=== PATIENT | male | born 1945 | race Caucasian/White ===

== ENCOUNTER 2020-03-07 15:52 | Emergency (ER) | payer MEDICARE, OTHER ==
[2020-03-07] MEDS ORDERED: Sodium Chloride 0.9% 10 ML Syringe FLUSH PRN (16:20)
[2020-03-07] MEDS ORDERED: Sodium Chloride 0.9% 1,000 ML IV SCH (16:30)
[2020-03-07 17:03] VITALS: BP 143/62; PULSE 64
[2020-03-07] MEDS ORDERED: Iopamidol 755 Mg/ML 100 ML Bottle IV ONE (17:13)
--- NOTE | 2020-03-07 18:39 | EDM.PDOC ---
ED HPI GENERAL MEDICAL PROBLEM - General Chief Complaint: Abdominal Pain Stated Complaint: ABD PAIN Time Seen by Provider: 03/07/20 16:00 Source of Information: Reports: Patient History Limitations: Reports: No Limitations - History of Present Illness INITIAL COMMENTS - FREE TEXT/NARRATIVE: Patient presented to the ED via EMS because of abdominal pain,diffuse,sharp,10/ 10 with associated nausea but no vomiting. He was given dilaudid and zofran IV en route to the Ed and his pain is down to 4/10. He has a history of metastatic colon CA to the liver but is not taking any pain medications. There is no changes in bowel movements, urinary symptoms,fever or chills. Abdomen Pain Score (Numeric/FACES): 2 - Related Data Allergies Allergy/AdvReac Type Severity Reaction Status Date / Time hydrochlorothiazide Allergy Muscle Verified 03/07/20 17:58 [From Maxzide] Aches lisinopril Allergy Cough Verified 03/07/20 17:58 triamterene [From Maxzide] Allergy Muscle Verified 03/07/20 17:58 Aches Home Meds: Home Meds Aspirin [Ecotrin] 81 mg PO DAILY 04/23/15 [History] Baclofen 10 mg PO TID PRN 04/23/15 [History] Clopidogrel [Plavix] 75 mg PO BID 04/23/15 [History] Losartan [Cozaar] 50 mg PO BID 04/23/15 [History] Metoprolol Tartrate 25 mg PO BID 04/23/15 [History] Nitroglycerin [Nitrostat] 0.4 mg SL ASDIRECTED PRN 04/23/15 [History] Terazosin [Hytrin] 10 mg PO BEDTIME 04/23/15 [History] Acetaminophen/oxyCODONE [Percocet 325-5 MG] 1 each PO Q4H PRN #20 tab 03/07/20 [ Rx] Finasteride [Proscar] 5 mg PO DAILY 03/07/20 [History] Octreotide [SandoSTATIN LAR] 30 mg INJECT Q30D 03/07/20 [History] Ondansetron [Zofran ODT] 4 mg PO Q4H PRN #7 tab.dis 03/07/20 [Rx] Past Medical History HEENT History: Reports: Impaired Vision Cardiovascular History: Reports: Hypertension, [place], Stents, Other (See Below) Other Cardiovascular History: 4 stents total. 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 - Past Surgical History HEENT Surgical History: Reports: None Cardiovascular Surgical History: Reports: None GI Surgical History: Reports: Colonoscopy Other GI Surgeries/Procedures: colon cancer Other Oncologic Surgeries/Procedures: colectomy for colon CA Social & Family History - Tobacco Use Smoking Status *Q: Former Smoker Years of Tobacco use: 20 Used Tobacco, but Quit: Yes Month/Year Tobacco Last Used: 1994 - Caffeine Use Caffeine Use: Reports: Coffee - Recreational Drug Use Recreational Drug Use: No ED ROS GENERAL - Review of Systems Review Of Systems: See Below Constitutional: Reports: No Symptoms HEENT: Reports: No Symptoms Respiratory: Reports: No Symptoms Cardiovascular: Reports: No Symptoms Endocrine: Reports: No Symptoms GI/Abdominal: Reports: Abdominal Pain, Nausea : Reports: Hematuria Musculoskeletal: Reports: No Symptoms Skin: Reports: No Symptoms Neurological: Reports: No Symptoms ED EXAM, GI/ABD - Physical Exam Exam: See Below Exam Limited By: No Limitations General Appearance: Alert, No Apparent Distress Throat/Mouth: Normal Inspection, Normal Lips, Normal Teeth Head: Atraumatic, Normocephalic Neck: Normal Inspection, Supple, Non-Tender Respiratory/Chest: No Respiratory Distress, Lungs Clear, Normal Breath Sounds Cardiovascular: Normal Peripheral Pulses, Regular Rate, Rhythm, No Edema GI/Abdominal Exam: Normal Bowel Sounds, Soft, Non-Tender, No Organomegaly, Other (diffusely tender more on the epigastrium and RUQ) Back Exam: Normal Inspection, Decreased Range of Motion Extremities: Normal Inspection, Normal Range of Motion Course - Vital Signs Text/Narrative:: Labs/CT abd/pelvis was discussed with patient and verbalized full understanding NS 1 L bolus Last Recorded V/S: Last Vital Signs Temp 36.6 C 03/07/20 15:57 Pulse 64 03/07/20 15:57 Resp 18 03/07/20 15:57 BP 143/62 H 03/07/20 15:57 Pulse Ox 97 03/07/20 15:57 - Orders/Labs/Meds Labs: Laboratory Tests 03/07/20 03/07/20 03/07/20 Range/Units 16:20 16:27 16:27 WBC 5.6 (4.5-12.0) X10-3/uL RBC 4.49 (4.30-5.75) x10(6)uL Hgb 14.0 (13.5-17.8) g/dL Hct 42.0 (30.0-51.3) % MCV 93.4 (80-96) fL MCH 31.3 (27.7-33.6) pg MCHC 33.5 (32.2-35.4) g/dL RDW 13.4 (11.5-15.5) % Plt Count 171 (125-369) X10(3)uL MPV 7.4 (7.4-10.4) fL Neut % (Auto) 81.6 (46-82) % Lymph % (Auto) 10.5 L (13-37) % [place] % (Auto) 6.9 (4-12) % Eos % (Auto) 0 L (1.0-5.0) % Baso % (Auto) 1 (0-2) % Neut # (Auto) 4.6 (1.6-8.3) # Lymph # (Auto) 0.6 (0.6-5.0) # [place] # (Auto) 0.4 (0.0-1.3) # Eos # (Auto) 0.0 (0.0-0.8) # Baso # (Auto) 0.0 (0.0-0.2) # Sodium 143 (135-145) mmol/L Potassium 4.1 (3.5-5.3) mmol/L Chloride 107 (100-110) mmol/L Carbon Dioxide 25 (21-32) mmol/L BUN 16 (7-18) mg/dL Creatinine 1.1 (0.70-1.30) mg/dL Est Cr Clr Drug Dosing TNP Estimated GFR (MDRD) > 60 (>60) BUN/Creatinine Ratio 14.5 (9-20) Glucose 132 H (80-116) mg/dL Calcium 8.5 L (8.6-10.2) mg/dL Total Bilirubin 0.9 (0.1-1.3) mg/dL AST 62 H (5-25) IU/L ALT 93 H (12-36) U/L Alkaline Phosphatase 62 (56-112) IU/L Total Protein 7.1 (6.0-8.0) g/dL Albumin 3.7 (3.2-4.6) g/dL Globulin 3.4 g/dL Albumin/Globulin Ratio 1.1 Amylase 42 (25-115) U/L Lipase (73-393) U/L Urine Color Yellow (YELLOW) Urine Appearance Clear (CLEAR) Urine pH 5.0 (5.0-6.5) Ur Specific [place] 1.015 (1.010-1.025) Urine Protein Trace (NEGATIVE) mg/dL Urine Glucose (UA) Normal (NORMAL) mg/dL Urine Ketones Negative (NEGATIVE) mg/dL Urine Occult Blood Negative (NEGATIVE) Urine Nitrite Negative (NEGATIVE) Urine Bilirubin Negative (NEGATIVE) Urine Urobilinogen Normal (NEGATIVE) mg/dL Ur Leukocyte Esterase Negative (NEGATIVE) Urine RBC 0-5 (0-5) Urine WBC 0-5 (0-5) Ur Squamous Epith Cells Few H (NS,R,O) Urine Bacteria Few H (NS) 03/07/20 Range/Units 16:27 WBC (4.5-12.0) X10-3/uL RBC (4.30-5.75) x10(6)uL Hgb (13.5-17.8) g/dL Hct (30.0-51.3) % MCV (80-96) fL MCH (27.7-33.6) pg MCHC (32.2-35.4) g/dL RDW (11.5-15.5) % Plt Count (125-369) X10(3)uL MPV (7.4-10.4) fL Neut % (Auto) (46-82) % Lymph % (Auto) (13-37) % [place] % (Auto) (4-12) % Eos % (Auto) (1.0-5.0) % Baso % (Auto) (0-2) % Neut # (Auto) (1.6-8.3) # Lymph # (Auto) (0.6-5.0) # [place] # (Auto) (0.0-1.3) # Eos # (Auto) (0.0-0.8) # Baso # (Auto) (0.0-0.2) # Sodium (135-145) mmol/L Potassium (3.5-5.3) mmol/L Chloride (100-110) mmol/L Carbon Dioxide (21-32) mmol/L BUN (7-18) mg/dL Creatinine (0.70-1.30) mg/dL Est Cr Clr Drug Dosing Estimated GFR (MDRD) (>60) BUN/Creatinine Ratio (9-20) Glucose (80-116) mg/dL Calcium (8.6-10.2) mg/dL Total Bilirubin (0.1-1.3) mg/dL AST (5-25) IU/L ALT (12-36) U/L Alkaline Phosphatase (56-112) IU/L Total Protein (6.0-8.0) g/dL Albumin (3.2-4.6) g/dL Globulin g/dL Albumin/Globulin Ratio Amylase (25-115) U/L Lipase 47 L (73-393) U/L Urine Color (YELLOW) Urine Appearance (CLEAR) Urine pH (5.0-6.5) Ur Specific [place] (1.010-1.025) Urine Protein (NEGATIVE) mg/dL Urine Glucose (UA) (NORMAL) mg/dL Urine Ketones (NEGATIVE) mg/dL Urine Occult Blood (NEGATIVE) Urine Nitrite (NEGATIVE) Urine Bilirubin (NEGATIVE) Urine Urobilinogen (NEGATIVE) mg/dL Ur Leukocyte Esterase (NEGATIVE) Urine RBC (0-5) Urine WBC (0-5) Ur Squamous Epith Cells (NS,R,O) Urine Bacteria (NS) Meds: Medications Discontinued Medications Generic Name Dose Route Start Last Admin Trade Name Freq PRN Reason Stop Dose Admin Sodium Chloride 1,000 mls @ 999 mls/hr 03/07/20 16:30 03/07/20 16:26 Normal Saline IV 999 mls/hr ASDIRECTED SACHIN Administration Iopamidol 100 ml 03/07/20 17:13 03/07/20 17:33 Isovue-370 (76%) IV 03/07/20 17:14 92 ml ONETIME ONE Administration Sodium Chloride 10 ml 03/07/20 16:20 03/07/20 16:27 Saline Flush FLUSH 10 ml ASDIRECTED PRN Administration Keep Vein Open Departure - Departure Time of Disposition: 18:35 Disposition: Home, Self-Care 01 Condition: Good Clinical Impression: Colon cancer, Abdominal pain, Cancer associated pain - Discharge Information Prescriptions: Acetaminophen/oxyCODONE [Percocet 325-5 MG] 1 each PO Q4H PRN #20 tab PRN Reason: Pain Ondansetron [Zofran ODT] 4 mg PO Q4H PRN #7 tab.dis PRN Reason: Nausea Instructions: Abdominal Pain, Adult, Colorectal Cancer Referrals: Amari Gunderson MD [Primary Care Provider] - Forms: ED Department Discharge Additional Instructions: please read discharge instructions on colon cancer and abdominal pain increase oral fluids percocet/oxycodone 5/325, take 1-2 tablets every 4-6 hours as needed for pain zofran odt 4 mg every 4 hours as needed for nausea stool softener that you have at home as prescribed. follow up as needed Sepsis Event Note - Evaluation Sepsis Screening Result: No Definite Risk - Focused Exam Date Exam was Performed: 03/09/20 Time Exam was Performed: 11:06
--- NOTE | 2020-03-07 19:30 | CT ---
INDICATION: Abdominal pain/history of colon cancer. COMPUTERIZED TOMOGRAPHY OF THE ABDOMEN AND PELVIS WITH IV CONTRAST: Spiral 3.75 mm axial sections were obtained through the abdomen and pelvis with 92 cc Isovue-370 at 100-second delay at 2 cc/second, on 03/07/20 and compared with 04/04 and 07/09/16. Total exam DLP was 1694.64 mGy-cm. There is some linear atelectatic or possibly minimal scarring or infiltrative change at the left lower lobe, not seen on the previous examination of . Minimal pneumonia could be present with that appearance. At the right lower lobe, there are some similar but much less prominent changes which could also be postinflammatory or fibrotic in nature and were only partly present on the previous examination. Some very minimal pleural reaction at the right lung base may be present and to a very minimal extent at the left lung base also. The heart appears somewhat more prominent than on the previous examination suggesting mild cardiomegaly. There appears to be coronary artery calcification. There are multiple low-density abnormalities in the liver. Compared with the previous study, they appear to be similar size, but are less well-delineated in general. No findings to strongly suggest progressive hepatic metastasis are seen. There is again noted a mesenteric mass in the mid abdomen seen on axial images 55-66 on the current study, which appears to be unchanged from 10/21/19 and only very slightly increased in size compared with 2016 examination. It is associated with a few calcifications as previously, compatible with a history of carcinoid. What appears to be gallbladder may contain [id number] bile as it is similar in density to the liver. This is unchanged from the previous study. The adrenal glands were unremarkable. There is some minimal fat stranding about the left kidney and to a lesser extent , the lower pole of the right kidney, most likely due to bouts of pyelonephritis previously with fibrosis of minimal degree. No obstructive uropathy or significant mass lesions could be identified at the kidneys. The spleen has a normal appearance. The pancreas appears to be moderately fatty -replaced. No biliary ductal dilatation was suggested. No other retroperitoneal mass was seen. There appears to have been surgery at the right colon. The appendix was not visualized. No evidence of bowel obstruction was seen. No evidence of free air was seen. The urinary bladder was impressed upon its floor by an enlarged prostate which measures 54 x 63 x 68 mm in anterior-posterior, transverse and craniocaudad diameters. There is noted mesenteric lymphadenopathy adjacent to the above-mentioned apparent mesenteric mass in the upper middle abdomen. Little change in that appearance is suggested. IMPRESSION: 1. Continued visualization of a mesenteric mass which appears stable when compared with 10/21/19 and only slightly increased in size compared with 2016 examination. 2. Apparent abnormal gallbladder - possible [id number] bile_-- GB ultrasound should be confirmatory. 3. ASD with aortic, right renal, superior mesenteric, iliac and femoral artery calcifications. 4. Prostatic enlargement with impression on the floor of the bladder. 5. Postsurgical right colon. 6. ASHD. 7. Relatively minimal pleuroparenchymal changes at the lung bases which may be due, at least in part, to fibrosis but cannot entirely exclude minimal pneumonia and pleuritis and possibly atelectasis. 8. Multiple low-density liver lesions compatible with metastatic disease that do not appear to be as prominent as on the previous study and are less well- defined in general. No definite new lesions to suggest progressive metastatic disease process of the liver were identified. Report was called to Dr. Padilla at [address] [facility]
== END 2020-03-07 18:55 | disposition home or self-care (01) ==
LOC: FB.ED 15:52
DX: G89.3 Neoplasm related pain (acute) (chronic) (principal); C18.9 Malignant neoplasm of colon, unspecified; I10 Essential (primary) hypertension; I25.2 Old myocardial infarction; M19.90 Unspecified osteoarthritis, unspecified site; Z87.891 Personal history of nicotine dependence; Z88.8 Allergy status to other drugs, medicaments and biological substances; Z79.82 Long term (current) use of aspirin; Z79.02 Long term (current) use of antithrombotics/antiplatelets; Z79.899 Other long term (current) drug therapy
CPT/HCPCS: 36415; 74177; 80053; 81001; 82150; 83690; 85025; 99284-25; J7030; Q9967

== ENCOUNTER 2021-03-21 16:01 | Emergency (ER) | payer MEDICARE, OTHER ==
[2021-03-21] MEDS ORDERED: Ondansetron 4 MG Tab.DIS PO ONE (16:02)
[2021-03-21] MEDS ORDERED: Acetaminophen/oxyCODONE 325-5 MG Tab PO ONE (16:02)
[2021-03-21] MEDS ORDERED: Morphine 4 MG/ML VIAL IVPUSH ONE (16:14)
[2021-03-21] MEDS ORDERED: Ondansetron 4 MG/2 ML SDV IVPUSH ONE (16:14)
[2021-03-21] MEDS ORDERED: Sodium Chloride 0.9% 1,000 ML IV SCH (16:15)
[2021-03-21] MEDS ORDERED: Iopamidol 755 Mg/ML 100 ML Bottle IV ONE (16:47)
[2021-03-21] MEDS: Sodium Chloride 0.9% 10 ML Syringe FLUSH PRN ×2 (17:15→20:10)
--- NOTE | 2021-03-21 19:00 | CT ---
INDICATION: Abdomen pain/history of colon cancer. CT ABDOMEN AND PELVIS WITH CONTRAST: Spiral 3.75 mm axial sections were obtained through the abdomen and pelvis with 100 mL Isovue-370 at 2 mL second, with sagittal and coronal reconstructions 03/21/21 and compared with 03/07/20 [facility] images. Total exam DLP was 1417.36 mGy-cm. Lower lung tapia and pleural spaces visualized showed evidence of some minimal focal infiltrate in the lingula, which may be fibrotic in nature and does appear to be at least partly present on the previous examination. Otherwise, a definite active infiltrate or effusion was not identified. There is some pleural thickening posteriorly with some heavy markings at the left lower lobe lung base, likely fibrotic in nature. The heart does not appear grossly enlarged. No pericardial effusion was seen. Coronary artery calcifications are suggested. Low-density lesion at the left lobe of the liver posteromedial appears larger than on the previous study, compatible with a progressive metastatic deposit, but should be correlated clinically. It measured almost 4 cm/39 mm, compared with 30 mm on the previous study. It is noted on axial image 22. A poorly visualized area of decreased density appears similar on axial image 18 in the mid right lobe of the liver, not very distant from the diaphragm. There may be some subtle low-density abnormalities at the dome of the diaphragm in the right lobe of the liver also, which may not be real, but cannot be entirely excluded. A tiny focal low-density abnormality on axial image 41 in the right lobe of the liver may have been present, at least in part, on the previous study, but is slightly better visualized. It does not appear grossly increased in size. There is some patchy decreased density in the medial posterior right lobe of the liver on axial images 44-47, which appears to have been present previously and is ill-defined. Etiology indeterminate. The common bile duct did not appear to be enlarged. What may be a contracted thick-walled gallbladder is present or simply a very contracted gallbladder. The appearance is similar to the previous examination. Fatty replacement of the pancreas is noted. The adrenal glands appear to be normal. The spleen appeared normal. A low-density lesion in the mid pole posterior cortex of the left kidney is compatible with a simple cyst, unchanged from the previous study. A very tiny low-density lesion in the lower pole of the right kidney also most likely represents a simple cyst, but is not large enough to determine with any assurance. No obstructive uropathy was seen, although there is some mild renal fascial thickening. Calcifications are noted in the abdominal aorta, superior mesenteric, right renal, iliac, and femoral arteries. Inferior to the pancreas, there is an apparent enlarging mass, etiology indeterminate, but compatible with a neoplastic process. On axial image 50 it is centrally located in the retroperitoneum and measures approximately 36 mm x 34 mm compared with the previous 2020 examination where this partially calcified mass was less bulky and had a maximum diameter of approximately 37 mm. This mass appears to be infiltrating into the adjacent peritoneal fat with spiculated appearance along portions of its contour and some low-density abnormality within it as well as calcification. There apparently has been a right hemicolectomy. Retroperitoneal lymphadenopathy is mild and nonspecific. There is a small irregular mass anteriorly in the lower abdomen in the midline which was present previously and appears unchanged and may represent enlarged lymph node. Other somewhat prominent lymph nodes are present; etiology indeterminate, but could be on the basis of metastatic disease. These measure on the order of 11-12 mm on axial image 62 in the midline and 16 mm in the midline on axial image 67 of series 2. There are other numerous similar or smaller lymph nodes present intraperitoneally. No evidence of free air or bowel obstruction was identified. The prostate is enlarged measuring 58 x 44 x 60 mm in transverse, AP and craniocaudad diameters. IMPRESSION: 1. Some progressive metastatic disease is suggested in the liver. 2. Contracted gallbladder possibly with thickened wall could represent chronic cholecystitis, similar appearance on the previous CT scan. 3. ASD/ASHD. 4. Enlarged lymph nodes in the peritoneal cavity, likely either postinfectious or malignant metastatic disease process, but similar to the previous study overall. 5. Epigastric central abdominal mass just inferior to the pancreatic head, which has increased in size and has a somewhat spiculated appearance compatible with malignancy. 6. Minimal cystic change left kidney with some renal fascial thickening bilaterally. 7. Right hemicolectomy. 8. Prostatic enlargement. 9. Minimal fibrotic changes in the lower lung tapia. Report was called to Dr. Padilla at 1820 hours 03/21/21. [facility]
--- NOTE | 2021-03-21 19:21 | EDM.PDOC ---
ED HPI GENERAL MEDICAL PROBLEM - General Chief Complaint: Abdominal Pain Stated Complaint: ABD PAIN Time Seen by Provider: 03/21/21 16:05 Source of Information: Reports: Patient History Limitations: Reports: No Limitations - History of Present Illness INITIAL COMMENTS - FREE TEXT/NARRATIVE: Patient is a 76 YO WM who presented to the ED because severe abdominal pain which started at 1330. The pain is sharp,10/10, over tld LLQ/RLQ,RUQ with associated nausea and vomiting x 3 . There is no fever,chills, urinary s/s. Patient has a history of stage 3 colon CA diagnosed 8 years ago and had partial colectomy at [facility]. mid abd Pain Score (Numeric/FACES): 8 - Related Data Allergies Allergy/AdvReac Type Severity Reaction Status Date / Time hydrochlorothiazide Allergy Muscle Verified 03/07/20 17:58 [From Maxzide] Aches lisinopril Allergy Cough Verified 03/07/20 17:58 triamterene [From Maxzide] Allergy Muscle Verified 03/07/20 17:58 Aches Home Meds: Home Meds Aspirin [Ecotrin] 81 mg PO DAILY 04/23/15 [History] Baclofen 10 mg PO TID PRN 04/23/15 [History] Clopidogrel [Plavix] 75 mg PO BID 04/23/15 [History] Losartan [Cozaar] 50 mg PO BID 04/23/15 [History] Metoprolol Tartrate 25 mg PO BID 04/23/15 [History] Nitroglycerin [Nitrostat] 0.4 mg SL ASDIRECTED PRN 04/23/15 [History] Terazosin [Hytrin] 10 mg PO BEDTIME 04/23/15 [History] Acetaminophen/oxyCODONE [Percocet 325-5 MG] 1 each PO Q4H PRN #20 tab 03/07/20 [Rx] Finasteride [Proscar] 5 mg PO DAILY 03/07/20 [History] Octreotide [SandoSTATIN LAR] 30 mg INJECT Q30D 03/07/20 [History] Ondansetron [Zofran ODT] 4 mg PO Q4H PRN #7 tab.dis 03/07/20 [Rx] Past Medical History HEENT History: Reports: Impaired Vision Cardiovascular History: Reports: Hypertension, GA, Stents, Other (See Below) Other Cardiovascular History: 4 stents total. 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 - Past Surgical History HEENT Surgical History: Reports: None Cardiovascular Surgical History: Reports: None GI Surgical History: Reports: Colonoscopy Other GI Surgeries/Procedures: colon cancer Other Oncologic Surgeries/Procedures: colectomy for colon CA Social & Family History - Caffeine Use Caffeine Use: Reports: Coffee ED ROS GENERAL - Review of Systems Review Of Systems: See Below Constitutional: Reports: No Symptoms HEENT: Reports: No Symptoms Respiratory: Reports: No Symptoms Cardiovascular: Reports: No Symptoms Endocrine: Reports: No Symptoms GI/Abdominal: Reports: Abdominal Pain : Reports: No Symptoms Musculoskeletal: Reports: No Symptoms Skin: Reports: No Symptoms Neurological: Reports: No Symptoms ED EXAM, GI/ABD - Physical Exam Exam: See Below Exam Limited By: No Limitations General Appearance: Alert, No Apparent Distress Ears: Normal External Exam, Normal Canal Nose: Normal Inspection, Normal Mucosa, No Blood Throat/Mouth: Normal Inspection, Normal Lips, Normal Teeth, Normal Gums, Normal Oropharynx Head: Atraumatic, Normocephalic Neck: Normal Inspection, Supple, Non-Tender, Full Range of Motion Respiratory/Chest: No Respiratory Distress, Lungs Clear, Normal Breath Sounds Cardiovascular: Normal Peripheral Pulses, Regular Rate, Rhythm, No Edema, No Gallop, No JVD, No Murmur, No Rub GI/Abdominal Exam: Normal Bowel Sounds, Soft, Other (tenderness RUQ,RLQ) Back Exam: Normal Inspection, Full Range of Motion Extremities: Normal Inspection, Normal Range of Motion, Non-Tender, No Pedal Edema, Normal Capillary Refill Neurological: Alert, Oriented, CN II-XII Intact, Normal Cognition Course - Vital Signs Text/Narrative:: Lab/CT result was reviewed and discussed with patient and his NS 1 L bolus Zofran 4 mg IV x1 Morphine 4 mg IV x 1 dose Morphine 2 mg IV x1 dose Case wass discussed with Dr Scott at [facility] who said he will talk to the oncologist taking care of Mr Gupta and will give him a call tomorrow. Last Recorded V/S: Last Vital Signs Temp 36.7 C 03/21/21 16:01 Pulse 63 03/21/21 16:01 Resp 18 03/21/21 16:01 BP 152/64 H 03/21/21 16:01 Pulse Ox 100 03/21/21 16:01 - Orders/Labs/Meds Orders: Active Orders 24 hr Category Date Time Status Sodium Chloride 0.9% [Normal Saline] 1,000 ml Med 03/21/21 16:15 Active IV ASDIRECTED Sodium Chloride 0.9% [Saline Flush] Med 03/21/21 16:12 Active 10 ml FLUSH ASDIRECTED PRN Saline Lock Insert [OM.PC] Routine Oth 03/21/21 16:12 Ordered Medication Orders Sodium Chloride (Normal Saline) 1,000 mls @ 999 mls/hr IV ASDIRECTED SACHIN Last Admin: 03/21/21 17:14 Dose: 999 mls/hr Documented by: [email or web address] Sodium Chloride (Sodium Chloride 0.9% 10 Ml Syringe) 10 ml FLUSH ASDIRECTED PRN PRN Reason: Keep Vein Open Last Admin: 03/21/21 17:15 Dose: 10 ml Documented by: [email or web address] Labs: Laboratory Tests 03/21/21 03/21/21 03/21/21 Range/Units 16:25 16:40 16:40 WBC 7.5 (3.2-10.1) x10-3/uL RBC 4.03 (3.90-5.90) x10(6)uL Hgb 13.0 (12.9-17.7) g/dL Hct 38.1 L (38.3-50.1) % MCV 94.5 (80.8-98.7) fL MCH 32.4 (27.0-33.3) pg MCHC 34.2 (28.7-35.3) g/dL RDW 13.2 (12.4-15.0) % Plt Count 145 (117-477) x10(3)uL MPV 8.5 (6.7-11.0) fL Neut % (Auto) 81.4 H (40.3-71.8) % Lymph % (Auto) 8.7 L (15.8-45.3) % Bremer % (Auto) 9.5 (5.5-15.2) % Eos % (Auto) 0.2 (0.1-6.8) % Baso % (Auto) 0.2 L (0.3-3.8) % Neut # (Auto) 6.1 (1.7-6.9) x10-3/uL Lymph # (Auto) 0.7 (0.5-4.5) x10-3/uL Bremer # (Auto) 0.7 (0.0-1.2) x10-3/uL Eos # (Auto) 0.0 (0.0-0.6) x10-3/uL Baso # (Auto) 0.0 (0.0-0.3) x10-3/uL Sodium 136 (135-145) mmol/L Potassium 3.6 (3.5-5.3) mmol/L Chloride 98 L D (100-110) mmol/L Carbon Dioxide 25 (21-32) mmol/L BUN 13 (7-18) mg/dL Creatinine 1.1 (0.70-1.30) mg/dL Est Cr Clr Drug Dosing TNP Estimated GFR (MDRD) > 60 (>60) BUN/Creatinine Ratio 11.8 (9-20) Glucose 166 H (80-116) mg/dL Calcium 8.9 (8.6-10.2) mg/dL Total Bilirubin 0.8 (0.1-1.3) mg/dL AST 34 H D (5-25) IU/L ALT 41 H D (12-36) U/L Alkaline Phosphatase 59 (56-112) IU/L Total Protein 7.1 (6.0-8.0) g/dL Albumin 3.8 (3.2-4.6) g/dL Globulin 3.3 g/dL Albumin/Globulin Ratio 1.2 Amylase 40 (25-115) U/L Lipase (73-393) U/L Urine Color Yellow (YELLOW) Urine Appearance Clear (CLEAR) Urine pH 5.0 (5.0-6.5) Ur Specific [place] 1.010 (1.010-1.025) Urine Protein Negative (NEGATIVE) mg/dL Urine Glucose (UA) Normal (NORMAL) mg/dL Urine Ketones 15 H (NEGATIVE) mg/dL Urine Occult Blood Negative (NEGATIVE) Urine Nitrite Negative (NEGATIVE) Urine Bilirubin Negative (NEGATIVE) Urine Urobilinogen Normal (NEGATIVE) mg/dL Ur Leukocyte Esterase Negative (NEGATIVE) U Hyaline Cast (Auto) Few H (NS) Urine RBC 0-5 (0-5) Urine WBC 0-5 (0-5) Ur Squamous Epith Cells Occasional (NS,R,O) Urine Bacteria Rare H (NS) 03/21/21 Range/Units 16:40 WBC (3.2-10.1) x10-3/uL RBC (3.90-5.90) x10(6)uL Hgb (12.9-17.7) g/dL Hct (38.3-50.1) % MCV (80.8-98.7) fL MCH (27.0-33.3) pg MCHC (28.7-35.3) g/dL RDW (12.4-15.0) % Plt Count (117-477) x10(3)uL MPV (6.7-11.0) fL Neut % (Auto) (40.3-71.8) % Lymph % (Auto) (15.8-45.3) % Bremer % (Auto) (5.5-15.2) % Eos % (Auto) (0.1-6.8) % Baso % (Auto) (0.3-3.8) % Neut # (Auto) (1.7-6.9) x10-3/uL Lymph # (Auto) (0.5-4.5) x10-3/uL Bremer # (Auto) (0.0-1.2) x10-3/uL Eos # (Auto) (0.0-0.6) x10-3/uL Baso # (Auto) (0.0-0.3) x10-3/uL Sodium (135-145) mmol/L Potassium (3.5-5.3) mmol/L Chloride (100-110) mmol/L Carbon Dioxide (21-32) mmol/L BUN (7-18) mg/dL Creatinine (0.70-1.30) mg/dL Est Cr Clr Drug Dosing Estimated GFR (MDRD) (>60) BUN/Creatinine Ratio (9-20) Glucose (80-116) mg/dL Calcium (8.6-10.2) mg/dL Total Bilirubin (0.1-1.3) mg/dL AST (5-25) IU/L ALT (12-36) U/L Alkaline Phosphatase (56-112) IU/L Total Protein (6.0-8.0) g/dL Albumin (3.2-4.6) g/dL Globulin g/dL Albumin/Globulin Ratio Amylase (25-115) U/L Lipase 36 L (73-393) U/L Urine Color (YELLOW) Urine Appearance (CLEAR) Urine pH (5.0-6.5) Ur Specific [place] (1.010-1.025) Urine Protein (NEGATIVE) mg/dL Urine Glucose (UA) (NORMAL) mg/dL Urine Ketones (NEGATIVE) mg/dL Urine Occult Blood (NEGATIVE) Urine Nitrite (NEGATIVE) Urine Bilirubin (NEGATIVE) Urine Urobilinogen (NEGATIVE) mg/dL Ur Leukocyte Esterase (NEGATIVE) U Hyaline Cast (Auto) (NS) Urine RBC (0-5) Urine WBC (0-5) Ur Squamous Epith Cells (NS,R,O) Urine Bacteria (NS) Meds: Medications Generic Name Dose Route Start Last Admin Trade Name Freq PRN Reason Stop Dose Admin Sodium Chloride 1,000 mls @ 999 mls/hr 03/21/21 16:15 03/21/21 17:14 Normal Saline IV 999 mls/hr ASDIRECTED SACHIN Administration Sodium Chloride 10 ml 03/21/21 16:12 03/21/21 17:15 Sodium Chloride 0.9% 10 Ml Syringe FLUSH 10 ml ASDIRECTED PRN Administration Keep Vein Open Discontinued Medications Generic Name Dose Route Start Last Admin Trade Name Freq PRN Reason Stop Dose Admin Iopamidol 100 ml 03/21/21 16:47 03/21/21 17:45 Iopamidol 755 Mg/Ml 100 Ml Bottle IV 03/21/21 16:48 100 ml . DIRECTED ONE Administration Morphine Sulfate 4 mg 03/21/21 16:14 03/21/21 17:14 Morphine 4 Mg/Ml Vial IVPUSH 03/21/21 16:15 4 mg ONETIME ONE Administration Morphine Sulfate 4 mg 03/21/21 19:49 Morphine 4 Mg/Ml Vial IVPUSH 03/21/21 19:50 NOW STA Morphine Sulfate 2 mg 03/21/21 19:58 Morphine 2 Mg/Ml Syringe IVPUSH 03/21/21 19:59 ONETIME ONE Ondansetron HCl 4 mg 03/21/21 16:14 03/21/21 17:14 Ondansetron 4 Mg/2 Ml Sdv IVPUSH 03/21/21 16:15 4 mg ONETIME ONE Administration Departure - Departure Time of Disposition: 19:30 Disposition: DC/Tfer to Acute Hospital 02 Condition: Good Clinical Impression: Metastatic colon cancer to liver, Abdominal pain - Discharge Information Referrals: Amari Gunderson MD [Primary Care Provider] - Forms: ED Department Discharge Additional Instructions: Please read discharge instructions on metastatic colon cancer Zofran ODT 4 mg every 4 hours as needed for nausea Percocet 5/325, 1-2 tablets every 4-6 hours as needed for pain [facility] in [place] will call you tomorrow Sepsis Event Note (ED) - Evaluation Sepsis Screening Result: No Definite Risk - Focused Exam Vital Signs: Vital Signs Temp Pulse Resp BP Pulse Ox 03/21/21 16:01 36.7 C 63 18 152/64 H 100 - My Orders Last 24 Hours: My Active Orders 03/21/21 16:12 Sodium Chloride 0.9% [Saline Flush] 10 ml FLUSH ASDIRECTED PRN Saline Lock Insert [OM.PC] Routine 03/21/21 16:15 Sodium Chloride 0.9% [Normal Saline] 1,000 ml IV ASDIRECTED - Assessment/Plan Last 24 Hours: My Active Orders 03/21/21 16:12 Sodium Chloride 0.9% [Saline Flush] 10 ml FLUSH ASDIRECTED PRN Saline Lock Insert [OM.PC] Routine 03/21/21 16:15 Sodium Chloride 0.9% [Normal Saline] 1,000 ml IV ASDIRECTED
[2021-03-21] MEDS ORDERED: Morphine 4 MG/ML VIAL IVPUSH STA (19:49)
[2021-03-21] MEDS ORDERED: Morphine 2 MG/ML SYRINGE IVPUSH ONE (19:58)
[2021-03-21 21:48] VITALS: BP 160/60; PULSE 64
== END 2021-03-21 20:25 | disposition home or self-care (01) ==
LOC: FB.ED 16:01
DX: C18.9 Malignant neoplasm of colon, unspecified (principal); C78.7 Secondary malignant neoplasm of liver and intrahepatic bile duct; I10 Essential (primary) hypertension; I25.2 Old myocardial infarction; Z88.8 Allergy status to other drugs, medicaments and biological substances; Z95.5 Presence of coronary angioplasty implant and graft; Z79.82 Long term (current) use of aspirin; Z79.02 Long term (current) use of antithrombotics/antiplatelets; Z79.899 Other long term (current) drug therapy
CPT/HCPCS: 36415; 74177; 80053; 81001; 82150; 83690; 85025; 96374; 96375; 96376; 99285; A9270; J2270; J2405; J7030; Q9967